=== PATIENT | female | born 1940 ===

== ENCOUNTER 2021-04-27 06:32 | Inpatient (IN) | payer OTHER ==
[~2021-04-27] VITALS: Ht 147.3 cm; Wt 55.3 kg
[~2021-04-27 06:32] MED LIST: IBUPROFEN800 MG PO
== END 2021-04-28 14:00 | disposition home or self-care (01) | DRG 743 ==
LOC: CIR.AMB 06:32 → OB/GYN 13:42 → O/R 13:42 → OB/GYN 15:20
PROVIDERS: ADMIT Obstetrics & Gynecology Gynecology; ATTEND Obstetrics & Gynecology Gynecology
PROC: 0JQC0ZZ Repair Pelvic Region Subcutaneous Tissue and Fascia, Open Approach (ICD-10-PCS; 2021-04-27)
PROC: 0UT97ZZ Resection of Uterus, Via Natural or Artificial Opening (ICD-10-PCS; principal; 2021-04-27 10:00)
DX: N81.3 Complete uterovaginal prolapse (principal); N72 Inflammatory disease of cervix uteri; N84.0 Polyp of corpus uteri; D25.1 Intramural leiomyoma of uterus; N89.4 Leukoplakia of vagina